=== PATIENT | female | born 1985 | race Caucasian/White ===

== ENCOUNTER 2018-05-25 13:00 | Emergency (ER) | payer MEDICAID ==
[~2018-05-25] VITALS: Ht 165.1 cm; Wt 70.9 kg
[2018-05-25] MEDS ORDERED: morphine 4 MG/ML inj SYRINge IM ONE (14:40)
[2018-05-25] MEDS ORDERED: DICL50TA8 PO (14:40)
[2018-05-25] MEDS ORDERED: GABA-532 PO (14:40)
[2018-05-25 15:02] VITALS: BP 167/106
== END 2018-05-25 15:05 | disposition home or self-care (01) ==
LOC: ER 13:01
DX: G89.29 Other chronic pain (principal); M54.5 Low back pain; Z79.899 Other long term (current) drug therapy
CPT/HCPCS: 96372; 99283; J2270

== ENCOUNTER 2018-06-02 16:06 | Emergency (ER) | payer MEDICAID ==
[~2018-06-02] VITALS: Ht 165.1 cm; Wt 70.3 kg
[~2018-06-02 16:06] MED LIST: DICL50TA8 PO; GABA-532 PO
[2018-06-02] MEDS ORDERED: HYDROmorphone 1 mg/ml syringe IM ONE (16:35)
[2018-06-02] MEDS ORDERED: ketorolac trometh inj. 60 MG/2 ML VIAL IM ONE (16:35)
== END 2018-06-02 17:23 | disposition home or self-care (01) ==
LOC: ER 16:07
DX: G89.29 Other chronic pain (principal); M54.5 Low back pain; F17.200 Nicotine dependence, unspecified, uncomplicated; Z79.899 Other long term (current) drug therapy
CPT/HCPCS: 96372; 99284; J1170; J1885

== ENCOUNTER 2020-02-10 17:36 | Inpatient (IN) | payer MEDICAID, OTHER ==
[~2020-02-10] VITALS: Ht 165.1 cm; Wt 68.1 kg
[2020-02-10 18:17] LABS: BASOPHILS # (AUTO) 0.1 X10'3 (0-0.2); BASOPHILS % (AUTO) 0.6 % (0-1); EOSINOPHILS # (AUTO) 0.1 X10'3 (0-0.9); EOSINOPHILS % (AUTO) 1.1 % (0-6); HEMATOCRIT 28.6 % (35.0-45.0); HEMOGLOBIN 8.8 g/dl (12.0-16.0); LYMPHOCYTES # (AUTO) 1.4 X10'3 (1.1-4.8); LYMPHOCYTES % (AUTO) 10.3 % (21-51); MEAN CORPUSCULAR HEMOGLOBIN 21.8 PG (27.0-31.0); MEAN CORPUSCULAR HGB CONC 30.9 g/dL (33.0-36.5); MEAN CORPUSCULAR VOLUME 70.6 FL (78-98); MONOCYTES # (AUTO) 1.3 X10'3 (0-0.9); NEUTROPHILS # (AUTO) 10.3 X10'3 (1.8-7.7); PLATELET COUNT 269 X10'3 (140-440); RED BLOOD COUNT 4.05 X10'6 (4.20-5.60); RED CELL DISTRIBUTION WIDTH 19.9 % (11.5-14.5); WHITE BLOOD COUNT 13.2 X10'3 (4.5-11.0)
[2020-02-10 18:38] LABS: ALANINE AMINOTRANSFERASE 18 U/L (12-78); ALBUMIN 2.8 G/DL (3.4-5.0); ALBUMIN/GLOBULIN RATIO 0.7 (1.1-1.5); ALKALINE PHOSPHATASE 60 IU/L (46-116); ANION GAP 9 (8-16); ASPARTATE AMINO TRANSFERASE 8 U/L (10-37); BILIRUBIN,TOTAL 0.3 MG/DL (0.1-1.0); BLOOD UREA NITROGEN 9 MG/DL (7-18); BUN/CREATININE RATIO 12.9 (6.6-38.0); CALCIUM 8.5 MG/DL (8.5-10.1); CHLORIDE 100 MMOL/L (99-107); GLUCOSE 101 MG/DL (70-104); LIPASE 141 U/L (73-393); SODIUM 138 MMOL/L (135-145); TOTAL CARBON DIOXIDE 29.1 MMOL/L (24-32); TOTAL PROTEIN 6.9 G/DL (6.4-8.2); eGFR > 90 ML/MIN
[2020-02-10 18:40] LABS: POTASSIUM 2.8 MMOL/L (3.5-5.1)
[2020-02-10 18:48] LABS: ANISOCYTOSIS 1+; HYPOCHROMASIA 2+; MICROCYTOSIS 2+; PLATELET ESTIMATE NORMAL; POIKILOCYTOSIS 2+
[2020-02-10] MEDS ORDERED: pantoprazole 40 MG vial IV ONE (19:30)
[2020-02-10] MEDS ORDERED: famotidine/PF 10 mg/ml inj IV ONE (19:30)
[2020-02-10] MEDS ORDERED: ondansetron/PF 4mg/2ml inj IV ONE (19:30)
[2020-02-10] MEDS ORDERED: morphine 4 MG/ML inj SYRINge IV ONE (19:30)
[2020-02-10 19:55] LABS: CLARITY,URINE SLIGHTLY CLOUDY (Clear); COLOR,URINE YELLOW (Yellow); GLUCOSE, URINE NEGATIVE (Neg); KETONES,URINE NEGATIVE (Neg); LEUKOCYTE ESTERASE ,URINE SMALL (Neg); NITRITES, URINE POSITIVE (Neg); OCCULT BLOOD,URINE LARGE (Neg); PROTEIN,URINE TRACE mg/dl (Neg)
[2020-02-10 19:57] LABS: URINE HCG NEGATIVE (NEG)
--- NOTE | 2020-02-10 20:02 | NUR ---
pt is 35yo female c/o n/v, abd pain since Sunday, decreased appetite, black tarry stool today, takes norco for chronic pain issues and "too much ibuprofen", pt is GCS 15 alert and oriented, resp even and unlabored, skin p/w/d,
[2020-02-10 20:19] LABS: BACTERIA,URINE 4+ /HPF (Neg); RBC,URINE 0-2 /HPF (0-2); SQUAMOUS EPITHELIAL CELL,UR FEW /LPF (FEW); UA COLLECTION TYPE CLN CATCH MIDSTREAM; WBC,URINE 20-30 /HPF (0-4)
[2020-02-10] MEDS ORDERED: CefTRIAXone 2gm/D5W 50ml 50 ML IV ONE (20:40)
[2020-02-10] MEDS ORDERED: potassium Cl 40 mEq/NS 500ml IV ONE (21:15)
[2020-02-10] MEDS ORDERED: potassium Cl 10 mEq/100mL bag IV SCH (21:16)
[2020-02-10] MEDS ORDERED: potassium Cl 10 mEq/100mL bag IV ONE ×2 (21:30→22:20)
--- NOTE | 2020-02-10 21:40 | NUR ---
pt moved from fast track to room 1, report to Júnior CORDOVA
[2020-02-10] MEDS: POTASSIUM BICARB 20meq eff tab 20 MEQ TABLET.EFF PO ONE ×2 (21:51→22:55)
--- NOTE | 2020-02-10 22:11 | NUR ---
Dr Gibbs and Alberto Lewis LIBRARY SPECIALIST at bedside to explain plan of care, pt needs to be admitted to hospital for kidney infection and ulcer, she is very tearful "I want to go home...I cannot stand these beds...my back hurts and I want to eat", pt is aware of NPO status and how critical her condition is, pt agrees to stay for now
[2020-02-10] MEDS ORDERED: magnesium 2GM in 50ml NS 50 ML IV ONE (22:20)
[2020-02-10] MEDS ORDERED: morphine 10mg/ml inj. IV ONE (22:25)
[2020-02-10 22:39] LABS: MAGNESIUM 2.1 MG/DL (1.5-2.4)
[2020-02-10 23:02] LABS: PARTIAL THROMBOPLASTIN TIME 31 SECONDS (22-32)
[2020-02-10 23:06] LABS: OCCULT BLOOD STOOL NEGATIVE (Neg)
[2020-02-10] MEDS: pantoprazole 40MG/NS 100ML BAG 100 ML IV SCH (23:31)
--- NOTE | 2020-02-10 23:34 | NUR ---
assisting RN with pt care, pt is resting quietly on gurney, protonix gtt started, has been evaluated by hospitalist, waiting for bed assignment
--- NOTE | 2020-02-11 00:36 | NUR ---
Patient in room ED 1. I have received report from Júnior CORDOVA and had the opportunity to ask questions and awaiting arrival of patient to the PCU unit.
--- NOTE | 2020-02-11 01:00 | NUR ---
Patient arrived from the ED at this time to PCU into room 3013A. She is alert and oriented and able to make her needs known. She does complain of some back pain which she says is chronic but she currently doesn't have pain meds ordered and she had received IV Morphine in the ER recently. Vitals are stable. She is on room air. She is on a Protonix gtt at this time. Also IV Potassium is going to replace a K of 2.8. She was able to ambulate from the rney to the bed independently without issues. She is not having any nausea/vomitting at this time and is pretty fatigued. Will continue to monitor.
[2020-02-11] MEDS: potassium Cl 10 mEq/100mL bag IV SCH ×4 (01:10→02:52)
[2020-02-11 02:00] VITALS: BP 148/65
--- NOTE | 2020-02-11 04:41 | NUR ---
promotional table spacer PAGER ID: [phone] MESSAGE: Patient Karuna Houser Rm [id number] Can we get the electrolyte replacement ordered for patient? She got some K in the ER but needs more. Thank you. Dinora CORDOVA ext. [phone]
[2020-02-11] MEDS ORDERED: potassium Cl 20 mEq SR tablet PO PRN ×2 (04:45)
[2020-02-11] MEDS ORDERED: magnesium Cl slow-release 64mg tablet PO PRN (04:45)
[2020-02-11] MEDS ORDERED: magnesium 4gm in 100ml NS 100 ML IV PRN (04:45)
[2020-02-11] MEDS: pantoprazole 40MG/NS 100ML BAG 100 ML IV SCH (04:58)
--- NOTE | 2020-02-11 04:59 | NUR ---
Patient has received a total of 40 mEq K IV at this point, two 10 mEq bags in the ER and two bags here on the floor for a K of 2.8. Then was unable to pull the other bags from the [employer] and Pharmacist Nancy said that she would not make this possible because they were ordered by the ER doctor. So obtained new order from Dr. Bailon for the regular electrolyte replacement protocol and will further replace K as necessary based on morning labs which are about to be drawn.
--- NOTE | 2020-02-11 05:59 | NUR ---
[facility] documentation: I have reviewed and agree with all interventions, assessments performed and documented by Rocio CORDOVA. [facility] Medication Administration: For this medication-pass time frame, all medication were reviewed, dispensed, administered and documented per hospital policy by Rocio CORDOVA.
[2020-02-11 06:00] VITALS: BP 145/76
[2020-02-11 06:16] LABS: BASOPHILS # (AUTO) 0.1 X10'3 (0-0.2); BASOPHILS % (AUTO) 0.8 % (0-1); EOSINOPHILS # (AUTO) 0.2 X10'3 (0-0.9); EOSINOPHILS % (AUTO) 2.2 % (0-6); HEMATOCRIT 23.3 % (35.0-45.0); HEMOGLOBIN 7.4 g/dl (12.0-16.0); LYMPHOCYTES # (AUTO) 1.5 X10'3 (1.1-4.8); LYMPHOCYTES % (AUTO) 14.4 % (21-51); MEAN CORPUSCULAR HEMOGLOBIN 22.2 PG (27.0-31.0); MEAN CORPUSCULAR HGB CONC 31.7 g/dL (33.0-36.5); MEAN CORPUSCULAR VOLUME 70.1 FL (78-98); MEAN PLATELET VOLUME 9.1 FL (7.4-10.4); MONOCYTES # (AUTO) 1.5 X10'3 (0-0.9); MONOCYTES % (AUTO) 14.4 % (2-12); NEUTROPHILS # (AUTO) 6.9 X10'3 (1.8-7.7); NEUTROPHILS % (AUTO) 68.2 % (42-75); PLATELET COUNT 209 X10'3 (140-440); RED BLOOD COUNT 3.33 X10'6 (4.20-5.60); RED CELL DISTRIBUTION WIDTH 19.7 % (11.5-14.5); WHITE BLOOD COUNT 10.2 X10'3 (4.5-11.0)
--- NOTE | 2020-02-11 06:24 | NUR ---
Problems reprioritized. Patient report given, questions answered & plan of care reviewed with Inés CORDOVA.
[2020-02-11 06:25] LABS: ALBUMIN 2.3 G/DL (3.4-5.0); ANION GAP 10 (8-16); BLOOD UREA NITROGEN 8 MG/DL (7-18); BUN/CREATININE RATIO 14.3 (6.6-38.0); CALCIUM 7.7 MG/DL (8.5-10.1); CHLORIDE 103 MMOL/L (99-107); CREATININE 0.56 MG/DL (0.40-0.90); GLUCOSE 87 MG/DL (70-104); MAGNESIUM 2.1 MG/DL (1.5-2.4); SODIUM 138 MMOL/L (135-145); TOTAL CARBON DIOXIDE 24.9 MMOL/L (24-32); eGFR > 90 ML/MIN
--- NOTE | 2020-02-11 06:30 | NUR ---
Problems reprioritized. Patient report given, questions answered & plan of care reviewed with Inés CORDOVA.
--- NOTE | 2020-02-11 06:32 | NUR ---
Patient in room PCU 3013. I have received report from Dinora CORDOVA and had the opportunity to ask questions and assume patient care.
[2020-02-11 06:38] LABS: POTASSIUM 2.9 MMOL/L (3.5-5.1)
--- NOTE | 2020-02-11 06:40 | NUR ---
PAGER ID: [phone] MESSAGE: Inés CORDOVA [phone] cande Houser K 2.9, will replace per protocol thanks!
[2020-02-11] MEDS: potassium CL 10mEq/100ml bag 100 ML IV PRN ×2 (07:06→08:09)
[2020-02-11] MEDS ORDERED: K and/or MAG REPLACEMENT MC SCH (08:00)
[2020-02-11] MEDS ORDERED: CefTRIAXone/D5W-Rocephin 1gm 50 ML IV SCH ×2 (08:00→20:00)
[2020-02-11] MEDS ORDERED: PANT-47 PO (08:29)
[2020-02-11] MEDS ORDERED: HYDROcodone/acetaminophen 10/325mg tab PO ONE (08:30)
--- NOTE | 2020-02-11 09:09 | NUR ---
Stable for discharge per MD orders, all discharge instructions reviewed with patient and all questions answered, physical prescription for Protonix given to patient, educated on the need to stop taking NSAIDs, educated on the need to follow up with a PCP or walk in clinic within 1-2 weeks, PIV and tele monitor discontinued, all belongings collected and sent with the patient, left the unit at [phone] in wheelchair to private vehicle
[2020-02-11 09:10] LABS: ANISOCYTOSIS 2+; MICROCYTOSIS 1+; PLATELET ESTIMATE NORMAL; POLYCHROMASIA 1+
[2020-02-11] MEDS ORDERED: pantoprazole 40MG/NS 100ML BAG 100 ML IV SCH (11:00)
[2020-02-11] MEDS ORDERED: LEVO500T2 PO (11:30)
--- NOTE | 2020-02-11 12:24 | NUR ---
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
== END 2020-02-11 09:08 | disposition home or self-care (01) | DRG 663 ==
LOC: ER 17:36 → ED HOLD 23:56 → UNDOADMIN 02-11 00:15 → ED HOLD 02-11 00:15 → PCU 3S 02-11 01:00
PROVIDERS: ADMIT Internal Medicine; ATTEND Internal Medicine
DX: D50.0 Iron deficiency anemia secondary to blood loss (chronic) (principal); K92.2 Gastrointestinal hemorrhage, unspecified; E87.6 Hypokalemia; G89.29 Other chronic pain; I10 Essential (primary) hypertension; K59.00 Constipation, unspecified; Z87.11 Personal history of peptic ulcer disease; Z87.891 Personal history of nicotine dependence; Z98.1 Arthrodesis status; Z98.84 Bariatric surgery status; M54.5 Low back pain
CPT/HCPCS: 36415; 74176; 80048; 80053; 81001; 81025; 82272; 83690; 83735; 84100; 85025; 85610; 85730; 86885; 86900; 86901; 87077; 87081; 87088; 87186; 96365; 99285; C9113; G0378; J0696; J2270; J2405; J3475; J3480; J3490

== ENCOUNTER 2021-03-01 18:14 | Emergency (ER) | payer MEDICAID, OTHER ==
[~2021-03-01 18:14] MED LIST changes: -DICL50TA8 PO; +PANT-47 PO
== END 2021-03-01 20:04 | disposition left against medical advice (07) ==
LOC: ER 18:14
DX: Z04.1 Encounter for examination and observation following transport accident (principal); Z53.21 Procedure and treatment not carried out due to patient leaving prior to being seen by health care provider